=== PATIENT | male | born 1935 | race Caucasian/White ===

== ENCOUNTER 2021-01-20 22:31 | Emergency (ER) | payer MEDICARE ==
[~2021-01-20] VITALS: Ht 182.9 cm; Wt 81.6 kg
[2021-01-20] MEDS ORDERED: LIDOCAINE 2% JEL UROJET 10 ML MM ONE ×2 (23:30→23:41)
--- NOTE | 2021-01-20 23:34 | NUR ---
'S NUMBER: [phone]
[2021-01-21] MEDS ORDERED: VANCOMYCIN 1 GM in IV D5W 250 ML IV ONE
--- NOTE | 2021-01-21 | NUR ---
PT BIBRA 40 AND DAUGHTER C/O "SLIGHTLY ALTERED" +ABD REDNESS PT HAD HEMICOLECTOMY ON 12/30/20. PT RESPONDS WHEN SPOKEN TO AND MAKES EYE CONTACT. PT HAS NON LABORED BREATHING.
[2021-01-21] MEDS ORDERED: VANCOMYCIN 1 GM VIAL ONE (00:03)
--- NOTE | 2021-01-21 00:19 | NUR ---
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
--- NOTE | 2021-01-21 00:19 | NUR ---
COVID SWAB DONE AND SENT TO LAB
[2021-01-21] MEDS ORDERED: IV NS 0.9% 250 ML IV ONE (00:20)
[2021-01-21] MEDS ORDERED: IOHEXOL-300 100 ML VIAL IV ONE (00:20)
[2021-01-21 00:35] LABS: BILIRUBIN,URINE NEGATIVE (NEGATIVE); COLOR,URINE YELLOW (YELLOW); LEUKOCYTE ESTERASE ,URINE NEGATIVE (NEGATIVE); NITRITE, URINE NEGATIVE (NEGATIVE); PH,URINE 8.5 (5.0-8.0); PROTEIN,URINE NEGATIVE (NEGATIVE); UGLUCOSE NEGATIVE (NEGATIVE); UROBILINOGEN,URINE 0.2 EU/dL (0.2)
[2021-01-21 01:09] LABS: BASOPHILS # (AUTO) 0.1 K/uL (0.0-0.2); EOSINOPHILS % (AUTO) 0.1 % (0.0-6.0); HEMATOCRIT 42 % (39-51); HEMOGLOBIN 12.5 g/dL (13.5-17.5); LYMPHOCYTES # (AUTO) 0.6 K/uL (0.8-4.8); LYMPHOCYTES % (AUTO) 4.4 % (20.0-44.0); MEAN CORPUSCULAR HGB CONC 30 g/dl (31.0-36.0); MEAN CORPUSCULAR VOLUME 86 fL (80-96); MONOCYTES # (AUTO) 1.6 K/uL (0.1-1.30); MONOCYTES % (AUTO) 12.3 % (2.0-12.0); NEUTROPHILS % (AUTO) 82.2 % (43.0-81.0); PLATELET COUNT (AUTO) 332 K/uL (150-450); RED BLOOD CELL COUNT(AUTO) 4.84 MIL/uL (4.5-6.0); WHITE BLOOD COUNT (AUTO) 13.4 K/uL (4.3-11.0)
[2021-01-21 01:37] LABS: CREATININE 1.1 mg/dL (0.6-1.3); POTASSIUM 4.1 mmol/L (3.5-5.1)
[2021-01-21 01:44] LABS: ALBUMIN 2.4 g/dL (3.4-5.0); BILIRUBIN,DIRECT 0.3 mg/dL (0.0-0.2); TOTAL PROTEIN, SERUM 6.2 g/dL (6.4-8.2)
--- NOTE | 2021-01-21 02:32 | NUR ---
MARTHA ZAVALA () [phone] HOME NUMBER [phone]
--- NOTE | 2021-01-21 03:26 | NUR ---
[facility] CALLED FOR [facility]SFER. SPOKE WITH PRABHA. [facility] FAXED TO [phone]
--- NOTE | 2021-01-21 04:28 | NUR ---
PT ACCEPTED TO [facility] BY DR WU. ROOM [id number]. PLS CALL [phone] 30 MINUTES PRIOR TO TRANSPORT FOR REPORT.
[2021-01-21] MEDS ORDERED: PIPERACILLIN /TAZOBACTAM 3.375 G in IV D5W 50 ML IV ONE (04:30)
--- NOTE | 2021-01-21 04:40 | NUR ---
CALLED [facility] FOR TRANSPORTATION TO [facility]. ETA 1 HOUR.
[2021-01-21] MEDS ORDERED: PIPERACILLIN /TAZOBACTAM 3.375 G VIAL IV ONE (05:02)
--- NOTE | 2021-01-21 05:22 | NUR ---
report given to PARISH Rios
--- NOTE | 2021-01-21 05:50 | NUR ---
PT - MARTHA CALLED AND VOICEMAIL LEFT REGARDING TRANSPORT TO [facility].
--- NOTE | 2021-01-21 06:08 | NUR ---
pt transferred to [facility] via ambulance in stable condition
[2021-01-21 06:09] VITALS: BP 112/76
== END 2021-01-21 06:09 | disposition short-term general hospital (02) ==
LOC: ER 22:35
DX: T81.43XA Infection following a procedure, organ and space surgical site, initial encounter (principal); L03.311 Cellulitis of abdominal wall; Z85.038 Personal history of other malignant neoplasm of large intestine; Z90.49 Acquired absence of other specified parts of digestive tract; R94.31 Abnormal electrocardiogram [ECG] [EKG]; Z20.822 Contact with and (suspected) exposure to COVID-19; Z86.73 Personal history of transient ischemic attack (TIA), and cerebral infarction without residual deficits
CPT/HCPCS: 36415; 71045; 74177; 80048; 80076; 81003; 82140; 83690; 84484; 85025; 85730; 87426; 93005; 96365; 96367; 99285; J2543; J3370; J3490; J7050; J7060; Q9967; C9803